=== PATIENT | female | born 1985 | race Caucasian/White ===

== ENCOUNTER 2017-10-23 16:10 | Emergency (ER) | payer BC ==
[~2017-10-23] VITALS: Ht 157.5 cm; Wt 73.3 kg
[~2017-10-23 16:10] MED LIST: BACTRIM,SEPT1 TABLET PO; CLEOCIN150 MG PO; Motrin PO; NAPROXEN500 MG PO; NOHOMEMEDS; PERCOCET 5/31 TABLET PO; Percocet 5/325,Endoc PO; TRAMADOL HCL50 MG PO
[2017-10-23] MEDS ORDERED: PERCOCET 5/31 TABLET PO (19:25)
[2017-10-23] MEDS ORDERED: MOTRIN800 MG PO (19:25)
[2017-10-23 19:50] VITALS: BP 135/70
== END 2017-10-23 19:51 | disposition home or self-care (01) ==
LOC: EME 16:10
PROC: 0U9L00Z Drainage of Vestibular Gland with Drainage Device, Open Approach (ICD-10-PCS; principal; 2017-10-23)
DX: N75.0 Cyst of Bartholin's gland (principal); F17.200 Nicotine dependence, unspecified, uncomplicated

== ENCOUNTER 2018-02-10 09:07 | Day surgery (SDC) | payer BC ==
[~2018-02-10] VITALS: Ht 157.5 cm; Wt 72.6 kg
[~2018-02-10 09:07] MED LIST changes: +MOTRIN800 MG PO; +ZYRTEC10 M3 PO
[2018-02-10 09:39] VITALS: BP 109/55
[2018-02-10] MEDS ORDERED: MOTRIN400 MG PO (13:34)
[2018-02-10] MEDS ORDERED: NORCO 5/3251 TABLET PO (13:34)
[2018-02-10 14:10] VITALS: BP 101/57
[2018-02-10 14:52] VITALS: BP 102/50
== END 2018-02-10 15:15 | disposition home or self-care (01) ==
LOC: SDC
DX: Z30.2 Encounter for sterilization (principal); N90.7 Vulvar cyst; N75.0 Cyst of Bartholin's gland; K66.0 Peritoneal adhesions (postprocedural) (postinfection); F17.200 Nicotine dependence, unspecified, uncomplicated
CPT/HCPCS: 87070; 87075; 87205; J0131; J1100; J1170; J1885; J2250; J2405; J2710; J3010; J7643; Q0175; S0020